=== PATIENT | female | born 2000 | race African-American/Black ===

== ENCOUNTER 2025-01-25 08:42 | Day surgery (SDC) | payer OTHER, SELFPAY ==
--- OUTSIDE RECORDS SUMMARY | 2025-01-12 23:59 | XMS_ITS | Continuity of Care Document ---
Author Organization [facility] Address [address] [place] [id number] Care Team Providers Care Digital Design Engineer Name Role Phone Chelsea VALENTINE, Sharron Primary Care Physician [place] [facility] [place] 01[place]05[place]25 - 01/12/25 [facility] [address] [place] [id number] Attending Physician: Joe Cid MD Referring Physician: Yzaan Renner MD Encounter Type: Office Visit Allergies, Adverse Reactions, Alerts Substance Criticality Severity Reaction Reaction Severity Status oxyCODONE Rash Active Immunizations Given and Recorded Vaccine Date Status Refusal Reason SARS-CoV-2 mRNA ([id number]) vax 01/09/22 Recorded influenza virus vaccine, inactivated 06/28/21 Give n influenza virus vaccine, inactivated 1 05/01/20 Gi tye influenza virus vaccine, inactivated 08/11/19 Polo rded influenza virus vaccine, inactivated 2 04/27/18 Gi tye influenza virus vaccine, inactivated 05/21/16 Give n influenza virus vaccine, inactivated 05/22/14 Give n influenza virus vaccine, inactivated 10/13/13 Give n influenza virus vaccine, inactivated 07/30/12 Give n influenza virus vaccine, inactivated 03/19/11 Give n SARS-CoV-2 (COVID-19) mRNA BNT-162b2 vac 12/24/20 Recorded SARS-CoV-2 (COVID-19) mRNA BNT-162b2 vac 12/02/20 Recorded tetanus/diphtheria/pertussis, acel(Tdap) 3 05/28/20 Given tetanus/diphtheria/pertussis, acel(Tdap) 03/19/11 Given Meningococcal Conjugate Vaccine 05/21/16 Given Meningococcal Conjugate Vaccine 03/19/11 Given Human Papillomavirus Vaccine 12/17/12 Given Human Papillomavirus Vaccine 07/30/12 Given Human Papillomavirus Vaccine 02/06/12 Given Varicella Virus Vaccine 03/19/11 Given Varicella Virus Vaccine 4 11/10/00 Given Measles/Mumps/Rubella Virus Vaccine 5 12/22/03 Giv en Measles/Mumps/Rubella Virus Vaccine 6 11/10/00 Giv en Poliovirus Vaccine, Inactivated 7 12/22/03 Given Poliovirus Vaccine, Inactivated 8 06/10/00 Given Poliovirus Vaccine, Inactivated 9 03/26/00 Given Poliovirus Vaccine, Inactivated 10 01/08/00 Given diphtheria/tetanus/pertussis, acel(DTaP) 11 12/22/03 Given diphtheria/tetanus/pertussis, acel(DTaP) 12 01/07/01 Given diphtheria/tetanus/pertussis, acel(DTaP) 13 06/10/00 Given diphtheria/tetanus/pertussis, acel(DTaP) 14 03/26/00 Given Haemophilus B Conj Vaccine (oldterm) 15 04/14/02 G iven Haemophilus B Conj Vaccine (oldterm) 16 06/10/00 G iven Haemophilus B Conj Vaccine (oldterm) 17 03/26/00 G iven Haemophilus B Conj Vaccine (oldterm) 18 01/08/00 G iven Pneumococcal Conjugate (PCV7) (oldterm) 19 04/15/01 Given Pneumococcal Conjugate (PCV7) (oldterm) 20 11/10/00 Given Pneumococcal Conjugate (PCV7) (oldterm) 21 06/10/00 Given Pneumococcal Conjugate (PCV7) (oldterm) 22 02/27/00 Given Hepatitis B Vaccine (old term) 23 03/12/01 Given Hepatitis B Vaccine (old term) 24 99 Given Hepatitis B Vaccine (old term) 25 99 Given 1Result Comment: Patient tolerated well NS 2Result Comment: [id number] 3Result Comment: Patient tolerated well NS 4Admin Note: CARLOS 5Admin Note: MMR 6Admin Note: MMR 7Admin Note: IPV/OPV 8Admin Note: IPV/OPV 9Admin Note: IPV/OPV 10Admin Note: IPV/OPV 11Admin Note: DTAP 12Admin Note: DTAP 13Admin Note: DTAP 14Admin Note: DTAP 15Admin Note: HIB 16Admin Note: HIB 17Admin Note: HIB 18Admin Note: HIB 19Admin Note: PCV7 20Admin Note: PCV7 21Admin Note: PCV7 22Admin Note: PCV7 23Admin Note: HEP B 24Admin Note: HEP B 25Admin Note: HEP B Medications B carbon fiber AFO B carbon fiber AFO, See Instructions, # 2 each, Refills 0, Tot. Refills 0, Maintenance, dispense 1 pair, DX: CP with B foot drop, 04/23/22 10:12:00 AM EDT, Supply Start Date: 04/23/22 Status: Ordered Quantity: 2.0 Unit: each Repeat number: 1 Nexplanon 68 mg subcutaneous implant 1 each = 68 mg, Subcutaneous Infusion, Once, Inserted 11/30/2023, 0 Refills, Maintenance, 11/30/23 3:06:00 PM EDT, Partial fill upon patient request if the prescription is for a schedule II opioid drug. Start Date: 11/30/23 Status: Ordered Repeat number: 1 Problem List Condition Confirmation Course Effective Dates Status H ealth Status Informant Cerebral palsy Confirmed Active Congenital deafness - left Confirmed Active Depressive disorder Confirmed 08/11/19 Active Developmental delay Confirmed Active Necrotizing Enterocolitis Confirmed Active ; History of depression Confirmed Active Obese class I Confirmed Active Partial resection of colon Confirmed Active Nexplanon in place Confirmed Active Social History Social History Type Response Smoking Status Never (less than 100 in lifetime) entered on: 09/08/24 Sex Sex Representation Female (finding) Patient Care team information Care Team Personnel Name: Sharron Tran MD Position: S Resident Member Role: PCP Address: [address] [place] [address] Telecom: Care Team Related Persons Name: SANTOS DAVIS Name: BEN DAVIS Name: JAVIER MCBRIDE Name: HARMAN ODELL Name: KARAN BALTAZAR Insurance Providers Guarantor name: KARAN BALTAZAR [facility] Plan Information #: 1 Payer: [employer] Payer Identifier: NA Member Number: [id number] Group Number: [id number] Subscriber Identifier: [id number] Relationship to Subscriber: self Coverage Type: Medicaid (Managed Care) Coverage Verification Date: NA Telecom: RENNY Address: NA
--- OUTSIDE RECORDS SUMMARY | 2025-01-18 12:48 | XMS_ITS | Clinical Summary ---
Author Organization [facility] Address [address] [place] [address] Care Team Providers Care Sack Lifter Name Role Phone Yajaira Maravilla THIRD COOK-C Primary Care Provider + Source Comments PLEASE NOTE, if this patient is a minor, it may be UNLAWFUL to discuss sensitive information that is contained in these records (such as FAMILY PLANNING, MENTAL HEALTH or SUBSTANCE ABUSE) with the minor patient's parent or other person without the patient's specific authorization.[facility] Allergies No known active allergies Medications acetaminophen (TYLENOL) 500 mg tabletIndications :8 weeks gestation of ([facility]),Pain Take 1 Tab by mouth every 6 (six) hours as needed for pain FYI: Avoid use of motrin during 90 Tab 1 0 Active ibuprofen 800 mg tabletIndications :Frequent headaches Take 1 Tablet by mouth 3 (three) times daily as needed for fever or pain 90 Tablet 1 Active therapeutic multivitamin (THEREMS) tabIndications:vi tamin deficiency prevention Take 1 Tablet by mouth once daily Indications: treatment to prevent vitamin deficiency 90 Tablet 1 1 Active Active Problems Problem Noted Date Diagnosed Date Depression 08/11/2019 Other cerebral palsy ([facility]) 08/11/2019 History of seizure 08/11/2019 Complete deafness of left ear 08/11/2019 Overview (08/11/2019): Since Reduced vision 08/11/2019 Overview (08/11/2019): Gradual. Started when she was [age] years of age. Dysmenorrhea 08/11/2019 Immunizations Immunization Administration Dates Next Due Flu, Preservative Free 08/11/2019 INFLUENZA, SEASONAL, INJECTABLE 04/27/2018,05/21 MENINGOCOCCAL MCV4O (MENVEO) 05/21/2016 PFIZER COVID VACCINE, PURPLE CAP, 12+ 12/24/2020 ,12/02/2020 Family History Medical History Relation Name Comments No Known Problems Brother No Known Problems Father No Known Problems Maternal Grandfather Seizures Maternal Grandmother Bipolar disorder Mother Mental illness Mother denia stone Seizures Mother No Known Problems Paternal Grandfather No Known Problems Paternal Grandmother No Known Problems Sister Relation Name Status Comments Brother Alive Father Alive Maternal Grandfather Alive Maternal Grandmother Alive Mother Alive Paternal Grandfather Alive Paternal Grandmother Alive Sister Alive Social History Tobacco Use Types Packs/Day Years Used Date Smoking Tobacco: Never Smokeless Tobacco: Never Alcohol Use Standard Drinks/Week Comments Never 0 (1 standard drink = 0.6 oz pur e alcohol) Social Connections Answer Date Recorded Connectedness 0 03/27/2024 Financial Resource Strain Answer Date R ecorded Financial Resource Strain 0 2019 Stress Answer Date Recorded Stress 0 08/11/2019 Physical Activity Answer Date Recorded Physical Activity 0 08/11/2019 Food Insecurity Answer Date Recorded Food 0 04/14/2024 Transportation Needs Answer Date Record ed Transportation 0 08/11/2019 Housing Stability Answer Date Recorded Housing 0 08/11/2019 Safety and Environment Answer Date Polo rded Safety 0 10/30/2020 Utilities Answer Date Recorded Utilities 0 08/11/2019 Employment Answer Date Recorded Employment 0 08/11/2019 Comments No Sex and Gender Information Value Date Recorded Sex Assigned at Female 08/11/2019 11:39 AM PST Legal Sex Female 11:30 AM PST Gender Identity Female 08/11/2019 11:39 AM PST Sexual Orientation Straight 08/11/2019 11 :39 AM PST Last Filed Vital Signs Vital Sign Reading Time Taken Comments Blood Pressure 100/60 08/11/2019 2:39 PM EST Pulse 90 08/11/2019 2:39 PM EST Temperature 36.7 C (98.1 F) 08/11/2019 2:39 PM EST Respiratory Rate 16 08/11/2019 2:39 PM EST Oxygen Saturation 98% 08/11/2019 2:39 PM EST Inhaled Oxygen Concentration - - Weight 61.7 kg (136 lb) 08/11/2019 2:39 PM EST Height 149.9 cm (4' 11 ) 08/11/2019 2:39 PM EST Body Mass Index 27.47 08/11/2019 2:39 PM EST Plan of Treatment Health Maintenance Due Date Last Done Comments HPV Screening 1999 Hepatitis C Screening 1999 Pap + HPV 1999 Tobacco Screening 1999 Imm-Varicella (1 of 2 - 13+ 2-dose series) 11/09/2012 HIV Screening 11/09/2014 Imm-HPV (1 - 3-dose series) 11/09/2014 Imm-DTaP/Tdap/Td (1 - Tdap) 11/09/2018 Imm-Hepatitis B (1 of 3 - 19 + 3-dose series) 11/09/2018 Anxiety Screening 09/09/2020 09/09/2019 Cervical Cancer Screening 11/09/2020 Pap Smear 11/09/2020 Depression Monitoring 01/29/2021 10/30/2020 , 01/13/2020, 09/09/2019, Additional history exists Relationship Safety Screening/Counseling 10/30/2021 10/30/2020, 08/11/2019 Hypertension Screening (#1) 08/10/2022 [id number] ( season) 2024 021, 12/02/2020 Alcohol and Drug Screen 07/20/2024 10/30/2020, 08/11 Imm-Influenza (#1) 2025 08/11/2019, 1 , 05/21/2016 Cervical Ablation/Cold-Knife Conization Discontinued Cervical Cryotherapy Discontinued Colposcopy Discontinued Endometrial Biopsy Discontinued Excision/Leep Discontinued HPV Genotyping Discontinued Vaginal Pap Discontinued Vulvoscopy Discontinued Insurance [employer] Care Teams Sack Lifter Relationship Specialty Start Date End Date Yajaira Maravilla FNP-C [address] [place] [address] [facility] - General 04/02/22
[2025-01-19 09:48] VITALS: BMI 34.2
[2025-01-25] VITALS (7 sets, daily range): BP systolic 127–131; BP diastolic 75–82; PULSE 85–100; RESP 15–19; TEMP 36.2–37.2; O2SAT 99–100
[2025-01-25] MEDS: Lactated Ringers 1,000 ML 100 ML IVCONT (09:36)
[2025-01-25 09:48] LABS: UPreg QC Valid YES
--- NOTE | 2025-01-25 10:50 | P.CONAN_ITS ---
Documented by User: Brittany Carmona NP 01/24/25 12:38 HPI - Anesthesia Eval Consult details Narrative: 24yo F for BILATER Lateral Rectus Eye Muscle Recession,LEFT Superior Rectus Recession Medically optimized per [facility] CP with mild devel delay - L ear congenital deafness [facility] Past Medical History Medical History Nexplanon in place History of necrotizing enterocolitis Developmental delay, mild Depressive disorder Congenital deafness Cerebral palsy Surgical History Surgical History History of surgery (11/02/17) Hx of colectomy (99) Social History Social History Are you a primary spiritual care coordinator to a significant other at home: Yes (daughter) Do you presently have visiting nurse or other home services: No Patient Tobacco Use Status: Never used Tobacco Use of substances other than those prescribed or required for medical reasons: No Have you been hit, kicked, punched, or otherwise hurt by someone within the past year? If so, by whom?: No Advance Directives: No Advance Directives Information Provided: Yes Advance Directives on File: No Patient : No FDLMP: 04/2024 : No Poor oral hygiene: No Meds Allergies Allergy/AdvReac Type Severity Reaction Status Date / Time oxycodone Allergy Rash Verified 01/25/25 09:17 Home Medications ?Medication ?Instructions ?Recorded ?Confirmed ?Last Taken ?Type etonogestrel 68 mg subdermal mg subdermal 01/19/2510/11 Unknown History implant (Nexplanon) Exam Height,Weight and Vital Signs: Height 5 ft Weight 79.379 kg Assessment and Plan Assessment Anesthesia Assessment: Chart Reviewed Documented by User: Aura Henley DO 01/25/25 11:11 [facility] Past Medical History Medical History Nexplanon in place History of necrotizing enterocolitis Developmental delay, mild Depressive disorder Congenital deafness Cerebral palsy Family History Family history of problems with anesthesia: No Surgical History Surgical History History of surgery (11/02/17) Hx of colectomy (99) History of Problems with Anesthesia: No Social History Social History Are you a primary spiritual care coordinator to a significant other at home: Yes (daughter) Do you presently have visiting nurse or other home services: No Patient Tobacco Use Status: Never used Tobacco Use of substances other than those prescribed or required for medical reasons: No Have you been hit, kicked, punched, or otherwise hurt by someone within the past year? If so, by whom?: No Advance Directives: No Advance Directives Information Provided: Yes Advance Directives on File: No Patient : No FDLMP: 04/2024 : No Poor oral hygiene: No Meds Allergies Allergy/AdvReac Type Severity Reaction Status Date / Time oxycodone Allergy Rash Verified 01/25/25 09:17 Home Medications ?Medication ?Instructions ?Recorded ?Confirmed ?Last Taken ?Type etonogestrel 68 mg subdermal mg subdermal 01/19/2510/11 Unknown History implant (Nexplanon) Exam Exam Date and Time: 01/25/25 1110 Height,Weight and Vital Signs: Height 5 ft Weight 79.379 kg Vital Signs Temperature 99.0 F 01/25/25 09:24 Pulse Rate 95 01/25/25 09:24 Respiratory Rate 15 01/25/25 09:24 Blood Pressure 131/76 01/25/25 09:24 Pulse Oximetry 99 01/25/25 09:24 Oxygen Delivery Method Room Air 01/25/25 09:24 Temperature 99.0 F 01/25/25 09:24 Pulse Rate 95 01/25/25 09:24 Respiratory Rate 15 01/25/25 09:24 Blood Pressure 131/76 01/25/25 09:24 Pulse Oximetry 99 01/25/25 09:24 Oxygen Delivery Method Room Air 01/25/25 09:24 Airway Mallampati Class: III TM Dist: >3cm Neck ROM: Full Loose/Missing/Broken Teeth: No (patient denies any loose or broken teeth) Heart: S1S2 Lungs: CTAB Assessment and Plan Assessment Anesthesia Assessment: Anesthesia Plan Discussed and Chart Reviewed Final Anesthetic Review Family History of Problems with Anesthesia: No History of Problems with Anesthesia: No NPO: Yes ASA Class: II Final Preanesthetic Review: No Changes in Pt Med Stat, Meds/Allgs Chart Reviewed, Consent Obtained/Reviewed and Anes Risks/Benef Reviewed Patient Risk: Low Procedure Risk: Low Anesthetic Plan Anesthetic Plan: GA and Agree w/ Assess. and Plan Disposition: Standard PACU
--- NOTE | 2025-01-25 12:14 | HO.OPHTHAL ---
Ophthalmology Operative Note Date of Service: 01/25/25 Narrative: Diagnoses 1. Exotropia 2. Left dissociated vertical deviation. Postoperative diagnoses same. Procedures 1. Recession of right lateral rectus 8 mm 2. Resection of right medial rectus 7 mm 3. Recession of left superior rectus [address] Renner. Anesthesia general. Complications none. The patient was brought to the operating room placed under general anesthesia. The eyes were prepped and draped in the usual sterile ophthalmic fashion. A lid speculum was placed in the right eye and incision made at bare sclera in the infero temporal fornix. The lateral rectus was hooked and secured with a double-armed Vicryl suture. The muscle was disinserted from the globe and reattached to a position 8 mm behind the original insertion. Conjunctiva was closed with interrupted Vicryl sutures. An incision was then made down to bare sclera in the inferonasal fornix. The medial rectus was hooked and dissected free of its overlying fascial attachments. Was secured at the insertion with the muscle clamp and 7 mm resection was marked off with cautery. The resection point was secured with a double armed Vicryl suture and the distal muscle resected. The resection point was then drawn forward to the original insertion with the Vicryl suture. Conjunctiva was closed with interrupted Vicryl sutures. The lid speculum was then placed in the left eye and an incision was made at bare sclera in the superotemporal fornix. The superior rectus was hooked and secured with a double-armed Vicryl suture. It was disinserted from the globe and reattached to a position 7 mm behind the original insertion. Conjunctiva was closed with interrupted Vicryl sutures. The patient was then awoken from general anesthesia and discharged to postoperative recovery in good condition.
== END 2025-01-25 12:59 | disposition home or self-care (01) ==
PROVIDERS: Nurse Practitioner; Visit Provider Ophthalmology
PROC: (CPT 67312; principal; 2025-01-25 10:40)
DX: H50.15 Alternating exotropia (principal); H50.22 Vertical strabismus, left eye; G80.9 Cerebral palsy, unspecified; K55.30 Necrotizing enterocolitis, unspecified; H90.42 Sensorineural hearing loss, unilateral, left ear, with unrestricted hearing on the contralateral side; F32.A Depression, unspecified; R62.50 Unspecified lack of expected normal physiological development in childhood; Z90.49 Acquired absence of other specified parts of digestive tract; Z97.8 Presence of other specified devices; Z88.5 Allergy status to narcotic agent
CPT/HCPCS: 67312; 67314; 81025; J1100; J1596; J1885; J2003; J2250; J2405; J2704; J3010